=== PATIENT | female | born 1990 | race Caucasian/White ===

== ENCOUNTER 2018-09-02 14:55 | Emergency (ER) | payer OTHER ==
[~2018-09-02] VITALS: Ht 154.9 cm; Wt 66.7 kg
[2018-09-02 14:55] VITALS: BP 115/66
[~2018-09-02 14:55] MED LIST: ALBU8.5H4 IH
[2018-09-02] MEDS ORDERED: ALBUTEROL FS 2.5 MG/3 ML VIAL.NEB NEB ONE (15:30)
[2018-09-02] MEDS ORDERED: IPRATROPIUM NEB FS 0.5 MG/2.5 ML AMPUL.NEB NEB ONE (15:30)
[2018-09-02] MEDS ORDERED: predniSONE 20 MG TABLET PO ONE (15:30)
[2018-09-02] MEDS ORDERED: predniSONE 20 MG TABLET ONE (15:40)
[2018-09-02] MEDS ORDERED: ALBUTEROL FS 2.5 MG/3 ML VIAL.NEB ONE (15:42)
[2018-09-02] MEDS ORDERED: IPRATROPIUM NEB FS 0.5 MG/2.5 ML AMPUL.NEB ONE (15:42)
== END 2018-09-02 16:10 | disposition home or self-care (01) ==
LOC: ER 15:02
DX: J45.901 Unspecified asthma with (acute) exacerbation (principal); Z98.890 Other specified postprocedural states
CPT/HCPCS: 94640 ×2; 99284; A4606; J7512; Z7610

== ENCOUNTER 2021-08-09 12:07 | Emergency (ER) | payer OTHER ==
[~2021-08-09] VITALS: Ht 157.5 cm; Wt 59.0 kg
[2021-08-09 12:19] VITALS: BP 124/76
--- NOTE | 2021-08-09 12:20 | NUR ---
TRIAGED,BACK TO WR TO WAIT FOR ER BED
--- NOTE | 2021-08-09 12:35 | NUR ---
TO CHAIR 22 FOR MD ARTEAGA
--- NOTE | 2021-08-09 12:50 | NUR ---
DR THAO TO CHAIR 22,PATIENT ABSENT
[2021-08-09] MEDS ORDERED: AZIT250T PO (13:39)
--- NOTE | 2021-08-09 15:16 | NUR ---
STREP SWAB DONE AND SENT
--- NOTE | 2021-08-09 15:47 | NUR ---
Patient discharged to home in stable condition. Written and verbal after care instructions given. Patient verbalizes understanding of instruction.
== END 2021-08-09 15:49 | disposition home or self-care (01) ==
LOC: ER 12:10
DX: J03.90 Acute tonsillitis, unspecified (principal); Z79.899 Other long term (current) drug therapy
CPT/HCPCS: 86403-TC; 87070-TC

== ENCOUNTER 2024-08-07 09:35 | Emergency (ER) | payer OTHER ==
[~2024-08-07] VITALS: Ht 154.9 cm; Wt 68.0 kg
[~2024-08-07 09:35] MED LIST changes: +AZIT250T PO
[2024-08-07 09:40] VITALS: BP 133/83; TEMP 98.2
[2024-08-07] MEDS ORDERED: predniSONE 20 MG TABLET ONE ×2 (09:57→09:58)
[2024-08-07] MEDS ORDERED: ALBU18HF2 INH (09:58)
[2024-08-07] MEDS ORDERED: PRED20TA PO (09:58)
[2024-08-07] MEDS: predniSONE 20 MG TABLET PO ONE (09:58)
[2024-08-07] MEDS: ALBUTEROL FS 2.5 MG/3 ML VIAL.NEB NEB ONE (10:06)
[2024-08-07] MEDS: IPRATROPIUM NEB FS 0.5 MG/2.5 ML AMPUL.NEB NEB ONE (10:06)
[2024-08-07] MEDS ORDERED: IPRATROPIUM NEB FS 0.5 MG/2.5 ML AMPUL.NEB ONE (10:09)
[2024-08-07] MEDS ORDERED: ALBUTEROL FS 2.5 MG/3 ML VIAL.NEB ONE (10:09)
[2024-08-07 10:18] VITALS: O2SAT 97
[2024-08-07 10:33] VITALS: O2SAT 100
[2024-08-07] MEDS ORDERED: ALBU2.5V13 NEB (11:07)
[2024-08-07 11:10] VITALS: O2SAT 98
== END 2024-08-07 11:11 | disposition home or self-care (01) ==
LOC: ER 09:46
DX: J45.901 Unspecified asthma with (acute) exacerbation (principal); J06.9 Acute upper respiratory infection, unspecified; B97.89 Other viral agents as the cause of diseases classified elsewhere; Z79.52 Long term (current) use of systemic steroids
CPT/HCPCS: 99283; 71045; 94640; J7512 ×2